=== PATIENT | female | born 1950 | race Hispanic/Latino ===

== ENCOUNTER 2017-04-09 20:09 | Inpatient (IN) | payer BC ==
[2017-04-09 20:43] LABS: BASO % 0.4 % (0.0-2.0); EOS # 0.1 K/uL (0.0-0.7); EOS % 1.4 % (0.0-4.0); HEMOGLOBIN 14.1 g/dL (11.0-16.0); LYMPH # 2.4 K/uL (1.0-4.3); LYMPH % 28.3 % (20.0-40.0); MEAN CELL VOLUME 94.4 fL (81.0-99.0); MEAN CORPUSCULAR HEMOGLOBIN 32.5 pg (27.0-31.0); MEAN CORPUSCULAR HGB CONC 34.4 g/dL (33.0-37.0); MEAN PLATELET VOLUME 8.7 fL (7.2-11.7); MONO # 0.4 K/uL (0.0-0.8); MONO % 5.4 % (0.0-10.0); NEUT # 5.4 K/uL (1.8-7.0); NEUT % 64.5 % (50.0-75.0); RBC 4.35 Mil/uL (3.80-5.20); WHITE BLOOD COUNT 8.3 K/uL (4.8-10.8)
[2017-04-09 20:51] LABS: ALBUMIN 4.4 g/dL (3.5-5.0)
[2017-04-09 20:54] LABS: ALB/GLOB RATIO 1.5 (1.0-2.1); ALT/SGPT 27 U/L (9-52); AST/SGOT 23 U/L (14-36); BLOOD UREA NITROGEN 17 mg/dL (7-17); GFR AFRICAN-AMERICAN > 60; GFR NON-AFRICAN AMERICAN > 60
[2017-04-09 20:55] LABS: CALCIUM 9.3 mg/dl (8.6-10.4)
[2017-04-09 20:59] LABS: SQUAMOUS EPITHIAL < 1 /hpf (0-5); URINE BACTERIA FEW (<OCC); URINE BILIRUBIN NEGATIVE (NEGATIVE); URINE BLOOD NEGATIVE (NEGATIVE); URINE CLARITY Clear (Clear); URINE COLOR Yellow (YELLOW); URINE GLUCOSE (UA) NORMAL (Normal); URINE LEUKOCYTE ESTERASE 2+ Leu/uL (Negative); URINE NITRATE NEGATIVE (NEGATIVE); URINE PROTEIN NEGATIVE (NEGATIVE); URINE UROBILINOGEN NORMAL mg/dL (0.2-1.0)
--- NOTE | 2017-04-09 21:05 | C.PDOC ---
History Of Present Illness 66 year old female who presents to the ER with mother for a complaint of altered mental status. As per mother, they were at the mall eating at the food court; she states the patient bit into a hot pepper, burned her mouth, and suddenly started acting strange, confused, and disoriented. Mother states she could not remember why they were there or what they were doing; she did not remember getting dressed and kept asking the same questions. In the ER, patient is able to recognize her family and her son on the phone; however, she states she recognizes the nurse Rosetta and myself. She verbalizes "I'm disoriented and can't remember anything". Mother denies patient has had any recent head injury, LOC, pain, or headache. Time Seen by Provider: 04/09/17 20:16 Chief Complaint (Nursing): Altered Mental Status History Per: Family History/Exam Limitations: None Onset/Duration Of Symptoms: Hrs Onset Of Symptoms: Cannot Confirm Onset Current Symptoms Are (Timing): Still Present Exacerbating Factor(s): Unknown Use Of Anticoag/Antiplatelets: No Speech Is: Normal Associated Symptoms: Disoriented, Confused. denies: Chest Pain, Neck Pain, Headache, Vomiting, Diarrhea, Dyspnea, Syncope, Falling, Weakness Past Medical History Reviewed: Historical Data, Nursing Documentation, Vital Signs Vital Signs: Last Vital Signs Temp 98.1 F 04/09/17 20:22 Pulse 76 04/09/17 20:22 Resp 16 04/09/17 20:22 BP 123/56 L 04/09/17 20:22 Pulse Ox 98 04/09/17 22:02 - Medical History PMH: No Chronic Diseases Surgical History: No Surg Hx Family History: States: Unknown Family Hx - Social History Hx Alcohol Use: No Hx Substance Use: No - Immunization History Hx Tetanus Toxoid Vaccination: No Hx Influenza Vaccination: No Hx Pneumococcal Vaccination: No Review Of Systems Constitutional: Negative for: Fever, Chills Eyes: Negative for: Vision Change Gastrointestinal: Negative for: Nausea, Vomiting Neurological: Positive for: Confusion. Negative for: Weakness, Numbness, Headache, Dizziness Physical Exam - Physical Exam Appears: Non-toxic Skin: Normal Color, Warm, Dry Head: Atraumatic, Normacephalic Eye(s): bilateral: Normal Inspection, PERRL, EOMI Oral Mucosa: Moist Neck: Normal, Supple Chest: Symmetrical, No Tenderness Cardiovascular: Rhythm Regular, No Murmur Respiratory: Normal Breath Sounds, No Rales, No Rhonchi, No Wheezing Gastrointestinal/Abdominal: Soft, No Tenderness Neurological/Psych: Normal Speech, Normal Cognition, Normal Motor, Normal Sensation, Other (No focal deficits) ED Course And Treatment - Laboratory Results Result Diagrams: 04/09/17 20:40 04/09/17 20:40 Lab Interpretation: No Acute Changes (Urine + WBC 19 with many bacteria, culture sent) ECG: Interpreted By Az ECG Rhythm: R BBB (incomplete), Nonspecific Changes (ST and T waves) O2 Sat by Pulse Oximetry: 98 (Room air) Pulse Ox Interpretation: Normal - Radiology CXR: Interpreted by Me CXR Interpretation: Yes: No Acute Disease - CT Scan/US CT Head Other Rad Studies (CT/US): Read By Radiologist, Radiology Report Reviewed CT/US Interpretation: EXAM: CT Head Without Intravenous Contrast. CLINICAL HISTORY: 66 years old, female; Signs and symptoms; Altered mental status/ memory loss; Additional info: AMS. TECHNIQUE: Axial computed tomography images of the head/brain without intravenous contrast. This CT exam. was performed using one or more of the following dose reduction techniques: automated exposure. control, adjustment of the mA and/or kV according to patient size, and/or use of iterative. reconstruction technique. Coronal and sagittal reformatted images were created and reviewed. EXAM DATE/TIME: 2016 8:33 PM. COMPARISON: There are no prior studies for comparison. FINDINGS : Brain: Ventricles are normal in size and configuration. There is no midline shift. There are no intraaxial. or extra-axial mass lesions or areas of hemorrhage. There are no abnormal fluid collections. Be-white differentiation is maintained. Ventricles: See above. Bones: Cranial vault is intact. Soft tissues: unremarkable. Sinuses: There is no acute sinusitis. Ears and mastoids: Middle ears and mastoids are unremarkable. Orbits: Orbital contents are unremarkable. IMPRESSION: No acute intracranial abnormality Progress Note: Head CT, EKG, CXR, and urine culture ordered. Reevaluation Time: 22:00 Reassessment Condition: Unchanged (Patient continues to state that she is "disoriented" and feels as if she is "in a dream". Asking repeatedly how she got to the ED and asking where she is now.) - Physician Consult Information Time Consulting Physician Contacted: 22:02 Physician Contacted: Aj Salazar Outcome Of Conversation: Patient to be admitted for neurology evaluation and observation. Disposition - Disposition Disposition: HOSPITALIZED Disposition Time: 22:39 Condition: FAIR - POA Present On Arrival: None - Clinical Impression Clinical Impression: Altered mental status - Scribe Statement The provider has reviewed the documentation as recorded by the Scribe Chauncey Vang All medical record entries made by the Scribe were at my direction and personally dictated by me. I have reviewed the chart and agree that the record accurately reflects my personal performance of the history, physical exam, medical decision making, and the department course for this patient. I have also personally directed, reviewed, and agree with the discharge instructions and disposition.
[2017-04-09 21:28] LABS: BARBITURATES, UR NEGATIVE (NEGATIVE); BENZODIAZEPINES, UR NEGATIVE (NEGATIVE)
[2017-04-09 21:31] LABS: OPIATES, UR NEGATIVE (NEGATIVE)
[2017-04-09 21:32] LABS: PHENCYCLIDINE, UR NEGATIVE (NEGATIVE)
--- NOTE | 2017-04-09 21:50 | CT ---
EXAM: CT Head Without Intravenous Contrast CLINICAL HISTORY: 66 years old, female; Signs and symptoms; Altered mental status/memory loss; Additional info: AMS TECHNIQUE: Axial computed tomography images of the head/brain without intravenous contrast. This CT exam was performed using one or more of the following dose reduction techniques: automated exposure control, adjustment of the mA and/or kV according to patient size, and/or use of iterative reconstruction technique. Coronal and sagittal reformatted images were created and reviewed. EXAM DATE/TIME: 04/09/2017 8:33 PM COMPARISON: There are no prior studies for comparison. FINDINGS: Brain: Ventricles are normal in size and configuration. There is no midline shift. There are no intra-axial or extra-axial mass lesions or areas of hemorrhage. There are no abnormal fluid collections. Be-white differentiation is maintained. Ventricles: See above. Bones: Cranial vault is intact. Soft tissues: unremarkable Sinuses: There is no acute sinusitis. Ears and mastoids: Middle ears and mastoids are unremarkable Orbits: Orbital contents are unremarkable. IMPRESSION: No acute intracranial abnormality
[2017-04-10 04:31] LABS: BASO % 0.6 % (0.0-2.0); EOS # 0.1 K/uL (0.0-0.7); EOS % 1.7 % (0.0-4.0); LYMPH # 2.7 K/uL (1.0-4.3); LYMPH % 35.4 % (20.0-40.0); MEAN CELL VOLUME 94.2 fL (81.0-99.0); MEAN CORPUSCULAR HEMOGLOBIN 32.7 pg (27.0-31.0); MEAN CORPUSCULAR HGB CONC 34.7 g/dL (33.0-37.0); MEAN PLATELET VOLUME 8.5 fL (7.2-11.7); MONO # 0.5 K/uL (0.0-0.8); MONO % 6.5 % (0.0-10.0); NEUT # 4.3 K/uL (1.8-7.0); NEUT % 55.8 % (50.0-75.0); RBC 3.99 Mil/uL (3.80-5.20); RED CELL DISTRIBUTION WIDTH 13.3 % (11.5-14.5); WHITE BLOOD COUNT 7.7 K/uL (4.8-10.8)
[2017-04-10 04:53] LABS: ALB/GLOB RATIO 1.4 (1.0-2.1); ALBUMIN 3.8 g/dL (3.5-5.0); ALT/SGPT 26 U/L (9-52); AST/SGOT 20 U/L (14-36); BLOOD UREA NITROGEN 19 mg/dL (7-17); GFR AFRICAN-AMERICAN > 60; GFR NON-AFRICAN AMERICAN > 60
[2017-04-10 05:04] LABS: LDL CHOLESTEROL 122 mg/dL (0-129)
[2017-04-10 05:13] LABS: HDL CHOLESTEROL 52 mg/dL (30-70)
[2017-04-10 08:48] LABS: FOLATE 17.3 ng/mL
--- NOTE | 2017-04-10 10:34 | RAD ---
PROCEDURE: CHEST RADIOGRAPH, 1 VIEW HISTORY: Altered mental status COMPARISON: None available. FINDINGS: LUNGS: Biapical pleural thickening with upper lobe granulomatous changes. Mild venous congestion. Bilateral hilar prominence. Mild patchy increased markings at the lung bases. PLEURA: No pneumothorax or pleural fluid seen. CARDIOVASCULAR: Normal. OSSEOUS STRUCTURES: Degenerative changes in the spine. VISUALIZED UPPER ABDOMEN: Normal. OTHER FINDINGS: None. IMPRESSION: Biapical pleural thickening with upper lobe granulomatous changes. Mild venous congestion. Bilateral hilar prominence. Mild patchy increased markings at the lung bases.
--- NOTE | 2017-04-10 15:00 | MRI ---
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 TECHNIQUE: Multiplanar, multisequence MR images of the brain were obtained without intravenous contrast enhancement. FINDINGS: HEMORRHAGE: None DWI: No evidence of an acute or early subacute infarction. BRAIN PARENCHYMA: No mass effect or edema. No suspicious cortical medullary parenchymal signal abnormality above or below the tentorium including throughout the brainstem. There is no mass effect. The midline brain and appears normal and there is no suspicious extra-axial fluid collection identified. VENTRICLES: Unremarkable. No hydrocephalus. CRANIUM: Unremarkable. ORBITS: Grossly unremarkable. PARANASAL SINUSES/MASTOIDS: Limited right maxillary sinusitis. VASCULAR SYSTEM: Skull base flow voids intact. OTHER FINDINGS: None. IMPRESSION: Unremarkable non contrast enhanced MRI of the brain. Incidental minimal right maxillary sinusitis.
--- NOTE | 2017-04-10 16:04 | CP.PCM.PN ---
Subjective - Date & Time of Evaluation Date of Evaluation: 04/10/17 Time of Evaluation: 10:00 Objective - Vital Signs/Intake and Output Vital Signs (last 24 hours): Temp Pulse Resp BP Pulse Ox 97.5 F L 63 16 102/48 L 98 04/10/17 04:25 04/10/17 07:33 04/10/17 07:33 04/10/17 07:33 04/10/17 07:33 - Medications Medications: Current Medications Clopidogrel Bisulfate (Plavix) 75 mg PO DAILY [facility] Last Admin: 04/10/17 11:23 Dose: 75 mg Fenofibrate (Tricor) 48 mg PO QPM [facility] Levothyroxine Sodium (Synthroid) 50 mcg PO DAILY@0630 [facility] Losartan Potassium (Cozaar) 25 mg PO DAILY [facility] Last Admin: 04/10/17 11:24 Dose: 25 mg Pneumococcal Polyvalent Vaccine (Pneumovax 23 Vaccine) 0.5 ml IM .ONCE ONE Stop: 04/12/17 10:01 Rosuvastatin Calcium (Crestor) 5 mg PO [facility] - Labs Labs: 04/10/17 04:26 04/10/17 04:26
[2017-04-10 16:29] VITALS: RESP 20
--- NOTE | 2017-04-10 20:35 | CON ---
DATE: 04/10/2017 ATTENDING PHYSICIAN: Aj Salazar MD LOCATION: Emergency room, bed 6. REASON FOR CONSULTATION: Confusion. CHIEF COMPLAINT: The patient was brought in by her mother with the history of abrupt change in behavior and change in mental status following eating hot pepper in the restaurant. She could not remember, act funny, and she was repeating the same sentences over and over stating that "I am disoriented, I cannot remember anything." No history of recent fever. No history of recent vaccination. No history of recent travel. No history of trauma to her head. No history of stimulated episodes happened in the past. From neurologic point of view, I was called in to evaluate her for further management. HISTORY OF PRESENT ILLNESS: The patient is a 66-year-old right-handed female, usual state of health, all she remembers that she came from work. She could not able to recall anything following this until she came to the hospital. She remembered the plan of yesterday evening event. She was thinking of taking her mother to the film. She could not recall anything during the whole episode as I described earlier. At present, she is awake, alert, and oriented to person, place, and time. She denies headache, denies visual or bulbar dysfunction. She denies any focal weakness at present. PAST MEDICAL HISTORY: Unremarkable. PERSONNEL HISTORY: Denies smoking or alcohol use. History of migraine as well as one miscarriage in the past. REVIEW OF SYSTEMS: A 12-point system had been reviewed except the neurological system showed change in mental status, which is new to her. MEDICATIONS: None. PHYSICAL EXAMINATION VITAL SIGNS: Blood pressure 110/72, mean atrial pressure of 84, respiratory rate 16, temperature 97.5, pulse rate 56 regular. HEART: Sounds regular. EXTREMITIES: No edema in the legs. No meningismus. No sign of meningeal encephalitis. Brudzinski sign as well as Kernig sign both are negative. NEUROLOGIC: The patient examined in the presence of her . The patient is awake, alert, oriented to person place and time. She knows the year. She knows the president. She knows few presidents backwards from the current president. She could able to spell her last name forward the backwards. She could able to follow 3-step command. No right and left confusion. She crosses the midline. She could able to tell the simple calculation very well. CRANIAL NERVE EXAMINATION: Visual field intact. Pupil reactive to light. Extraocular movement normal. No nystagmus. No facial or sensory deficit. No facial asymmetry. Hearing is normal. Tongue is midline. Good gag. MOTOR EXAMINATION: Outstretched hand with eyes closed. No drift noted. Power is symmetric on either side. Deep tendon reflexes absent. Plantar are downgoing. SENSORY EXAMINATION: Grossly intact. No cortical sensory loss. COORDINATION: [id number] test is intact. CT of the head revealed by me, no acute pathology is noted. EKG: Normal sinus rhythm. BLOOD WORK: WBC 7.7, hemoglobin 13.0, hematocrit 37.6, platelet 213. Sodium 143, potassium 4.1, chloride 107, bicarbonate 22, BUN 19, creatinine of 0.7, GFR more than 60, glucose 145. Hemoglobin A1c is 5.8. Triglycerides 178, cholesterol 193, LDL 122, HDL 52. TSH 18.5. CONCLUSION: Upon reviewing her history and neurological examination, the patient been presenting with retrograde amnesia consistent with transient global amnesia, possible ischemic process at medial temporal region. This probably is a small vessel disease verses hypercoagulable stage. The current examination does not show any evidence of any long tract sign suggestive of any permanent damage to her [employer]. The current examination does not shows any evidence of infectious or inflammatory process. However, other process from neurological point of view, partial complex seizures should be ruled out. Her workup CT of the head reviewed by me. RECOMMENDATIONS: 1. MRA of the brain to rule out any acute pathology. 2. The patient should be on antiplatelet (Plavix), statin, and angiotensin-receptor blockers. 3. The patient should be supplemented with levothyroxine for her hypothyroidism. 4. Echocardiogram/carotid Dopplers/EEG to be done. Blood work as per the order. The patient's condition is being well discussed with her as well as her . If all workup is negative, the patient is stable for next 12-hour period, the patient can be discharged, and she will have a follow up visit with me as an outpatient. Ramiro Valencia MD
[2017-04-10 23:30] VITALS: O2SAT 98
--- NOTE | 2017-04-11 02:51 | CARD ---
APPROVED REPORT EXAM: Two-dimensional and M-mode echocardiogram with Doppler and color Doppler. Other Information Quality : GoodRhythm : NSR INDICATION AMS M-Mode DIMENSIONS Left Atrium (MM)3.30 (2.5-4.0cm)IVSd0.86 (0.7-1.1cm) Aortic Root3.10 (2.2-3.7cm)LVDd4.77 (4.0-5.6cm) Aortic Cusp Exc.2.23 (1.5-2.0cm)PWd0.94 (0.7-1.1cm) FS (%) 37 %LVDs2.99 (2.0-3.8cm) LVEF (%)67 (>50%) Mitral Valve MV E Metcdstb82.2cm/sMV A Hivcewun35.6cm/sE/A ratio0.6 TDI E/Lateral E'0.0E/Medial E'0.0 Tricuspid Valve TR Peak Odsukgsi555wt/sTR Peak Gr.[id number] LEFT VENTRICLE The left ventricle is normal size. There is normal left ventricular wall thickness. Left ventricle systolic function is normal. The Ejection Fraction is 65-70%. There is normal LV segmental wall motion. Tissue Doppler imaging reveals abnormal left ventricular diastolic dysfunction. RIGHT VENTRICLE The right ventricle is normal size. There is normal right ventricular wall thickness. The right ventricular systolic function is normal. ATRIA The left atrium size is normal. The right atrium size is normal. The interatrial septum is intact with no evidence for an atrial septal defect. AORTIC VALVE The aortic valve is normal in structure. No aortic regurgitation is present. There is no aortic valvular stenosis. There is no aortic valvular vegetation. MITRAL VALVE The mitral valve is normal in structure. There is no evidence of mitral valve prolapse. There is no mitral valve stenosis. There is no mitral valve regurgitation noted. TRICUSPID VALVE The tricuspid valve is normal in structure. There is trace tricuspid regurgitation. Right ventricular systolic pressure is estimated at less than 30 mmHg. There is no pulmonary hypertension. PULMONIC VALVE The pulmonic valve is not well visualized. There is no pulmonic valvular regurgitation. GREAT VESSELS The aortic root is normal in size. PERICARDIAL EFFUSION There is no significant pericardial effusion. <Conclusion> Left ventricle systolic function is normal. The Ejection Fraction is 65-70%. Diastolic dysfunction. No aortic regurgitation is present. There is no mitral valve regurgitation noted. There is trace tricuspid regurgitation. There is no pulmonary hypertension. There is no pulmonic valvular regurgitation.
--- NOTE | 2017-04-11 03:03 | HP ---
CHIEF COMPLAINT: The patient was found disoriented while eating at [email or web address] in [facility] suddenly. HISTORY OF PRESENT ILLNESS: Ms. Waters is a 66-year-old female with past medical history of hyperlipidemia and hypothyroidism who has been following up with Dr. Darinel Wahl who was evaluated by PMD about a week or two ago for routine physical, came into the ED brought by EMS as the patient was found disoriented while she was at a restaurant. All the history obtained from the patient, patient's who is at bedside and by review of the ER physicians note. As per the family, the patient and her mother were going to see a movie in [facility] and stopped by [email or web address] for supper. The patient ate some hot pepper immediately after that she complained of tingling or weird sensation in the lip followed by acute onset of disorientation, which was noticed by the mother and the patient was not able to recognize anybody around her, was not able to recall anything. At which point, EMS was called. EMS brought her to the [facility] in the ED also the patient was found to be disoriented, unable to recall anything prior to this incident and the patient is being admitted for further evaluation. This morning, the patient claims that she was able to remember the remote things, but not able to recollect what happened in the evening hours of yesterday, but now, she is back to her baseline. She denied any prior history of these episodes. Denied any symptoms prior to having these disorientation. Denied any seizure like activity, either witnessed or the patient did not feel any other neurologic symptoms. This morning, the patient claims that she is little tired and fatigued other than that denies any headache or dizziness. Denied any nausea, vomiting, abdominal pain, diarrhea, or constipation. Denied any urinary complaints. Denied any leg pains or leg cramps. Denied any chest pain, shortness of breath or wheezing. Denied any other neurologic symptoms. All other systems reviewed and was found to be negative. PAST MEDICAL HISTORY: Hypothyroidism and hyperlipidemia. PAST SURGICAL HISTORY: Denies any past surgical history. FAMILY HISTORY: Basal cell cancer, mitral valve prolapse in mother. Father at age 84. 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 SOCIAL HISTORY: She is an ex-smoker. Smoked one pack per week. Denies any alcohol, drinks socially. Denies any other drug abuse. ALLERGIES: SHE IS ALLERGIC TO PENICILLIN. MEDICATIONS: Include Levoxyl 137 mcg daily and Lipitor 10 mg daily. REVIEW OF SYSTEMS: As described in history of present illness. All other systems reviewed and were found to be negative. PHYSICAL EXAMINATION: GENERAL: A middle-aged female lying in bed in no acute distress. VITAL SIGNS: Blood pressure 102/48, pulse 63, respirations 16, temperature of 98.2 degrees Fahrenheit, and O2 saturations 98% on room air. HEENT: Pupils are equal, round and reactive to light and accommodation. Extraocular muscles are intact. No icterus. No pallor. No oral thrush. No pharyngeal congestion. No nasal congestion. NECK: Supple. No JVD. No thyromegaly. CHEST: Lungs are clear bilaterally on respiration. LUNGS: Bilateral vesicular breath sounds. No wheezing. No rhonchi. CARDIOVASCULAR: S1 and S2 present, regular. ABDOMEN: Soft and nontender. Bowel sounds present. No guarding. No rigidity. No rebound tenderness noted. CRIMINALIST: Alert, awake, and oriented x3. No focal deficits noted. EXTREMITIES: No edema. Palpable peripheral pulses. LABORATORY DATA: Labs done from the ED; WBC 8.3, hemoglobin 14.1, hematocrit 41 and platelets 254. Sodium 143, potassium 3.6, chloride 102, bicarb 27, BUN 17, creatinine 0.8, glucose 145, hemoglobin A1c 5.8, calcium 9.3, total bilirubin 0.5, AST 23, ALT 27, alkaline phosphatase 104, troponin less than 0.0120, total protein 7.3, albumin 4.4, globulin 3.0 and prolactin 17.6. UA specific gravity 1.016, pH of 5.0, leukocyte esterase 2+, wbc 19 and urine drug screen negative. CT head negative. Chest x-ray negative. EKG normal sinus rhythm, no acute ST-T changes. Chest x-ray biapical pleural thickening with upper lobe granulomatous changes, mild venous congestion, bilateral prominence, mild patchy increased markings at the lung basis. ASSESSMENT: A middle-aged female with past medical history of hyperlipidemia, hypothyroidism, admitted for acute onset of disorientation with altered mental status and the patient is being admitted for further management. 1. All her symptoms are consistent with transient global amnesia rule out cerebrovascular accident verus transient ischemic attack. 2. Hyperlipidemia. 3. Hypothyroidism. PLAN: The patient is being admitted to telemetry, will do neuro checks. We will check carotid Doppler, echocardiogram and MRI of the brain. We will give aspirin 325 mg p.o. daily. Continue with Synthroid 137 mcg daily and Lipitor 10 mg daily. We will obtain neurology evaluation with Dr. Valencia. We will add further recommendation as her clinical course progress. Check labs in the morning. Aj Salazar MD
[2017-04-11] MEDS ORDERED: Levothyroxine 50 MCG TAB PO SCH (06:30)
[2017-04-11 08:03] VITALS: TEMP 97.5
--- NOTE | 2017-04-11 09:52 | CP.PCM.PN ---
Subjective - Date & Time of Evaluation Date of Evaluation: 04/11/17 Time of Evaluation: 09:30 - Subjective Subjective: Discharge summary dictated #[id number] Objective - Vital Signs/Intake and Output Vital Signs (last 24 hours): Temp Pulse Resp BP Pulse Ox 97.5 F L 57 L 20 104/61 98 04/11/17 08:02 04/11/17 08:02 04/11/17 08:02 04/11/17 08:02 04/11/17 08:02 Intake and Output: 04/11/17 04/11/17 06:59 18:59 Intake Total 300 Balance 300 - Medications Medications: Current Medications Clopidogrel Bisulfate (Plavix) 75 mg PO DAILY [facility] Last Admin: 04/11/17 09:22 Dose: 75 mg Cyanocobalamin (Vitamin B12 1000 Mcg/Ml Inj) 1,000 mcg IM DAILY [facility] Last Admin: 04/11/17 09:22 Dose: 1,000 mcg Fenofibrate (Tricor) 48 mg PO QPM [facility] Last Admin: 04/10/17 17:03 Dose: 48 mg Levothyroxine Sodium (Levothroid) 137 mcg PO DAILY@0630 [facility] Last Admin: 04/11/17 06:28 Dose: 137 mcg Losartan Potassium (Cozaar) 25 mg PO DAILY [facility] Last Admin: 04/11/17 09:23 Dose: Not Given Pneumococcal Polyvalent Vaccine (Pneumovax 23 Vaccine) 0.5 ml IM .ONCE ONE Stop: 04/12/17 10:01 Rosuvastatin Calcium (Crestor) 5 mg PO HS [facility] Last Admin: 04/10/17 22:20 Dose: 5 mg - Labs Labs: 04/10/17 04:26 04/10/17 04:26
[2017-04-11] MEDS ORDERED: Pneumococcal 23-Valent Vaccine IM ONE (10:28)
--- NOTE | 2017-04-11 13:21 | PN ---
DATE: 04/11/2017 TIME OF EVALUATION: 07:10 a.m. NEUROLOGIC PROBLEM: Transient global amnesia. PHYSICAL EXAMINATION VITAL SIGNS: Blood pressure 97/61, mean arterial pressure of 73, respiratory rate 16, temperature afebrile. NECK: Supple. No carotid bruits. HEART: S1 and S2, regular. LUNGS: Fair air entry. EXTREMITIES: No edema in legs. PSYCHIATRIC: The patient's mentation is normal. No antegrade amnesia. No sign of depression. She slept good. Examination is unchanged to compare with my yesterday's examination. MRI of the brain does not show any ischemic process especially in the medial temporal region. Rest of the workup is under progress. Electroencephalogram is also reviewed, normal electrophysiological activities. No evidence of paroxysmal activities or focal slowing noted. The patient should be continued stroke prophylaxis as been suggested earlier. When medically stable, the patient can be discharged and follow up with me as an outpatient. Ramiro Valencia MD
[2017-04-11 14:02] VITALS: BP 98/58; PULSE 73
--- NOTE | 2017-04-11 16:39 | VASCLAB ---
PROCEDURE: HISTORY: stenosis COMPARISON: None available. TECHNIQUE: Grayscale and duplex Doppler evaluation of the cervical carotid and vertebral arteries were performed. The common carotid, carotid bifurcations and cervical Internal Carotid Artery (ICA) and proximal External Carotid Artery (ECA) were evaluated. The vertebral arteries were evaluated for gross patency and flow direction. Report prepared by Chauncey Santiago, BS, RVT FINDINGS: RIGHT CAROTID ARTERIES: 1. Common Carotid Artery: No significant focal plaque formation of the right common carotid artery. Maximum Peak Systolic velocity: 73 cm/sec: End-diastolic velocity 25 cm/sec. 2. Carotid Bifurcation: plaque formation. Maximum Peak Systolic velocity: 57 cm/sec: End-diastolic velocity 16 cm/sec. 3. Internal Carotid Artery: Plaque description: 3.1. Proximal Segment: Peak systolic velocity 94 cm/sec: End-diastolic velocity 34 cm/sec - % stenosis 0-15% 3.2. Middle Segment: Peak systolic velocity 114 cm/sec: End-diastolic velocity 38 cm/sec - % stenosis 0-15% 3.3. Distal Segment: Peak systolic velocity 70 cm/sec: End-diastolic velocity 27 cm/sec - % stenosis 0-15% 4. External Carotid Artery: No significant focal plaque formation. Peak systolic velocity 68 cm/sec 5. ICA/CCA Ratio: 1.6 LEFT CAROTID ARTERIES: 1. Common Carotid Artery: No significant focal plaque formation of the left common carotid artery. Maximum Peak Systolic velocity: 66 cm/sec: End-diastolic velocity 20 cm/sec. 2. Carotid Bifurcation: plaque formation. Maximum Peak Systolic velocity: 62 cm/sec: End-diastolic velocity 20 cm/sec. 3. Internal Carotid Artery: Plaque description: 3.1. Proximal Segment: Peak systolic velocity 86 cm/sec: End-diastolic velocity 21 cm/sec - % stenosis 0-15% 3.2. Middle Segment: Peak systolic velocity 91 cm/sec: End-diastolic velocity 38 cm/sec - % stenosis 0-15% 3.3. Distal Segment: Peak systolic velocity 92 cm/sec: End-diastolic velocity 38 cm/sec - % stenosis 0-15% 4. External Carotid Artery: No significant focal plaque formation. Peak systolic velocity 90 cm/sec 5. ICA/CCA Ratio: 1.4 VERTEBRAL ARTERIES: 1. Right Vertebral Artery: The right vertebral artery flow direction is antegrade. 2. Left Vertebral Artery: The left vertebral artery flow direction is antegrade. OTHER FINDINGS: 1. Right Brachial Blood pressure: 110 mmHg. 2. Left Brachial Blood pressure: 112 mmHg. IMPRESSION: RIGHT: Duplex scan does not suggest hemodynamically significant stenosis of the right extracranial carotid arteries. LEFT: Duplex scan does not suggest hemodynamically significant stenosis of the left extracranial carotid arteries.
--- NOTE | 2017-04-12 06:07 | EEG ---
CONDITION OF THE RECORDING: This is a 16-channel electroencephalogram of awake and drowsy adult. During the study, photic stimulation was performed. Hyperventilation was not performed. TESTING: The resting electroencephalogram consists of 9-11 Hz, 40-50 microvolt alpha activities, well pronounced in both parietal and occipital leads. These activities symmetrically attenuated with eye opening. Some movement artifact intermittently noted, which contaminated the background. The photic stimulation did not evoke driving response noted at 2-20 Hz. IMPRESSION: This is a normal electroencephalogram of awake and drowsy adult. During the study, neither electroencephalographic paroxysmal activities nor focal slowing noted. Ramiro Valencia MD
[2017-04-12] MEDS ORDERED: Pneumococcal 23-Valent Vaccine IM ONE (10:00)
--- NOTE | 2017-04-12 14:08 | DS ---
DISCHARGE DIAGNOSES: Transient global amnesia, hypothyroidism, hyperlipidemia. HISTORY OF PRESENT ILLNESS: Ms. Waters is a 66-year-old female with past medical history of hypothyroidism, hyperlipidemia, who has been following up with doctors from [place], came into the ED, brought by EMS as the patient was found disoriented and talking irrelevantly while she was having supper with her mother at a restaurant in [facility]. In the ED also, the patient was disoriented and the patient was admitted for further management. This morning, the patient is feeling much better. Denies any headache or dizziness. Denies any chest pain, shortness of breath or wheezing. Denies any nausea, vomiting, abdominal pain, diarrhea or constipation. Denies any urinary complaints. Denies any leg pains or leg cramps. Denies any other neurologic symptoms. Her memory is back to her baseline, but unable to recall about that episode. All other systems reviewed and were found to be negative. PHYSICAL EXAMINATION: GENERAL: A middle-aged female lying in bed, in no acute distress. VITAL SIGNS: Blood pressure 104/61, pulse 64, respirations 20, temperature 98 degrees Fahrenheit, and O2 saturations 98% on room air. HEENT: Pupils are equal, round and reactive to light and accommodation. Extraocular muscles are intact. No icterus. No pallor. No oral thrush. No pharyngeal congestion. NECK: Supple. No JVD. No thyromegaly. CHEST: Lungs are clear bilaterally on respiration. LUNGS: Bilateral vesicular breath sounds. No wheezing. No rhonchi. CARDIOVASCULAR: S1 and S2 present, regular. ABDOMEN: Soft and nontender. Bowel sounds present. No guarding. No rigidity. No rebound tenderness noted. CENTRAL NERVOUS SYSTEM: Alert, awake, and oriented x3. No focal deficits noted. EXTREMITIES: No edema. Palpable peripheral pulses. LABORATORY DATA: Labs done in the hospital, serum immunofixation not detected. WBC 7.7, hemoglobin 13, hematocrit 37.6 and platelets 213. Cardiac enzymes x3 negative. Hemoglobin A1c 5.8. C-reactive protein 0.97. Sodium 143, potassium 4.1, chloride 107, bicarbonate 22, BUN 19, creatinine 0.7, glucose 97, calcium 9.0. AST 20, ALT 26, alkaline phosphatase 108. Triglycerides 178, cholesterol 193, LDL 122, HDL 52. B12 is 280, folate 17.3. TSH is 18.5. Prolactin 17.6. Urine, specific gravity 1.016, pH of 5.0, leukocyte esterase 2+, WBC 19. Urine drug screen negative. RPR nonreactive. CT head negative. MRI brain negative. Echocardiogram, diastolic dysfunction with EF of 65% to 70%. EEG negative as per Neurology. Carotid Doppler, not received. HOSPITAL COURSE: The patient was admitted to the hospital for transient global amnesia. The patient was monitored for any further of neurologic changes. The patient was started on Plavix, lipid-lowering agent and JUSTINE inhibitors. By Neurology, the patient underwent all the workup. All the workup was negative. TSH is elevated. The patient saying that she is taking 137 mcg. Discussed with the patient's PMD, Dr. Wahl who claims that her TSH about 2 weeks ago was 4. So, discussed with PMD, agreed to continue the 137 mcg and we will repeat as outpatient to adjust her thyroid medication. I will continue with other home medications and the patient is otherwise hemodynamically stable and cleared by Neurology. As the patient is otherwise hemodynamically stable, the patient is being discharged. The patient's primary care physician will be following up with the patient after the discharge. All the copies of the lab results and radiologic workup provided to the patient. CONDITION UPON DISCHARGE: The patient is alert, awake and oriented x3 and hemodynamically stable. DISCHARGE MEDICATIONS: Lipitor 10 mg daily, Plavix 75 mg daily, vitamin B12 1000 mcg daily, levothyroxine 137 mcg daily and Cozaar 25 mg p.o. daily. DISCHARGE INSTRUCTIONS: Follow up with PMD, follow up with Neurology. DISCHARGE DIET: Heart healthy, low-cholesterol diet. Activity as tolerated. Advised the patient to return to ED if any other symptoms occur. Aj Salazar MD
== END 2017-04-11 13:00 | disposition home or self-care (01) | DRG 72 ==
LOC: C.ER 20:09 → C.9E 22:39 → C.5T 04-10 07:52
PROVIDERS: ADMIT Internal Medicine; ATTEND Internal Medicine
DX: G45.4 Transient global amnesia (principal); E03.9 Hypothyroidism, unspecified; E78.5 Hyperlipidemia, unspecified; Z87.891 Personal history of nicotine dependence